=== PATIENT | male | born 1970 | race Caucasian/White ===

== ENCOUNTER 2019-12-22 14:36 | Outpatient (NON) | payer OTHER, SELFPAY ==
[2019-12-22 15:43] LABS: Red Blood Count 3.39 M/mm3 (4.70-6.10); White Blood Count 5.4 K/mm3 (4.8-10.8)
[2019-12-22 15:44] LABS: Hematocrit 33.3 % (40.0-54.0); Hemoglobin 10.7 g/dL (14.0-18.0); Mean Corpuscular HGB Conc 32.1 g/dL (32.0-36.0); Mean Corpuscular Hemoglobin 31.6 pg (27.0-31.0); Mean Corpuscular Volume 98.2 fL (78.0-102.0); Mean Platelet Volume 10.5 fl (8.7-11.0); Red Cell Distribution Width 14.4 % (11.6-14.4)
[2019-12-22 15:45] LABS: Eosinophils Absolute Auto 0.07 K/mm3 (0.02-0.50); Eosinophils Percent Auto 1.3 % (1.0-6.0); Immature Granulocyte Absolute 0.02 K/mm3 (0.00-0.00); Immature Granulocyte Percent A 0.4 % (0.0-0.0); Lymphocytes Absolute Auto 0.12 K/mm3 (1.10-4.50); Lymphocytes Percent Auto 2.2 % (18.0-42.0); Monocytes Absolute Auto 0.73 K/mm3 (0.10-0.90); Monocytes Percent Auto 13.6 % (2.0-11.0); Neutrophils Absolute Auto 4.4 K/mm3 (1.7-7.2); Neutrophils Percent Auto 82.5 % (50.0-70.0); Platelet Count Result 212 K/mm3 (150-420)
[2019-12-22 16:09] LABS: Albumin Level 2.9 g/dL (3.4-5.0); Anion Gap 10.5 mmol/L (7-16); Blood Urea Nitrogen 18 mg/dL (7-18); Calcium 8.4 mg/dL (8.5-10.1); Carbon Dioxide 28 mmol/L (21-32); Chloride 108 mmol/L (98-108); Estimated Glomerular Filt Rate 48; Glucose 79 mg/dL (70-99); Osmolality Calculated 296 mOsm/kg (285-295); Phosphorus 1.7 mg/dL (2.6-4.7); Potassium 3.5 mmol/L (3.5-5.1); Sodium 143 mmol/L (136-145)
[2019-12-24 20:29] LABS: Tacrolimus Prograf 9.4 mcg/L
== END 2019-12-22 14:37 ==
DX: Z94.0 Kidney transplant status (principal)
CPT/HCPCS: 36415; 80069; 80197; 83735; 85025

== ENCOUNTER 2020-01-02 13:06 | Outpatient (NON) | payer OTHER, SELFPAY ==
[2020-01-02 13:36] LABS: Basophils Absolute Auto 0.04 K/mm3 (0.00-0.10); Basophils Percent Auto 0.5 % (0.0-1.0); Eosinophils Absolute Auto 0.25 K/mm3 (0.02-0.50); Eosinophils Percent Auto 3.2 % (1.0-6.0); Hemoglobin 10.9 g/dL (14.0-18.0); Immature Granulocyte Absolute 0.04 K/mm3 (0.00-0.00); Immature Granulocyte Percent A 0.5 % (0.0-0.0); Lymphocytes Absolute Auto 0.43 K/mm3 (1.10-4.50); Lymphocytes Percent Auto 5.5 % (18.0-42.0); Mean Corpuscular HGB Conc 32.1 g/dL (32.0-36.0); Mean Corpuscular Hemoglobin 31.9 pg (27.0-31.0); Mean Corpuscular Volume 99.4 fL (78.0-102.0); Mean Platelet Volume 9.7 fl (8.7-11.0); Monocytes Absolute Auto 0.31 K/mm3 (0.10-0.90); Neutrophils Absolute Auto 6.8 K/mm3 (1.7-7.2); Neutrophils Percent Auto 86.3 % (50.0-70.0); Platelet Count Result 330 K/mm3 (150-420); Red Blood Count 3.42 M/mm3 (4.70-6.10); Red Cell Distribution Width 14.5 % (11.6-14.4); White Blood Count 7.8 K/mm3 (4.8-10.8)
[2020-01-02 13:54] LABS: Alanine Aminotransferase 45 U/L (16-63); Albumin Level 3.8 g/dL (3.4-5.0); Alkaline Phosphatase 71 U/L (46-116); Anion Gap 13.3 mmol/L (7-16); Aspartate Amino Transferase 22 U/L (15-37); Bilirubin,Total 0.6 mg/dL (0.00-1.00); Blood Urea Nitrogen 22 mg/dL (7-18); Calcium 9.1 mg/dL (8.5-10.1); Carbon Dioxide 27 mmol/L (21-32); Chloride 102 mmol/L (98-108); Estimated Glomerular Filt Rate 51; Glucose 76 mg/dL (70-99); Osmolality Calculated 286 mOsm/kg (285-295); Phosphorus 2.7 mg/dL (2.6-4.7); Potassium 5.3 mmol/L (3.5-5.1); Sodium 137 mmol/L (136-145); Total Protein 6.6 g/dL (6.4-8.2)
[2020-01-05 08:17] LABS: Tacrolimus Prograf 9.2 mcg/L
== END 2020-01-02 13:07 ==
PROVIDERS: Visit Provider Surgery
DX: Z94.0 Kidney transplant status (principal); Z79.899 Other long term (current) drug therapy
CPT/HCPCS: 36415; 80053; 80197; 84100; 85025

== ENCOUNTER 2020-01-09 15:05 | Outpatient (NON) | payer OTHER, SELFPAY ==
[2020-01-09 15:30] LABS: Hemoglobin 10.5 g/dL (14.0-18.0); Mean Corpuscular HGB Conc 32.8 g/dL (32.0-36.0); Mean Corpuscular Hemoglobin 32.2 pg (27.0-31.0); Mean Corpuscular Volume 98.2 fL (78.0-102.0); Mean Platelet Volume 9.2 fl (8.7-11.0); Platelet Count Result 381 K/mm3 (150-420); Red Blood Count 3.26 M/mm3 (4.70-6.10); Red Cell Distribution Width 14.6 % (11.6-14.4); White Blood Count 3.8 K/mm3 (4.8-10.8)
[2020-01-09 15:54] LABS: Alanine Aminotransferase 43 U/L (16-63); Albumin Level 3.7 g/dL (3.4-5.0); Alkaline Phosphatase 68 U/L (46-116); Anion Gap 14.8 mmol/L (7-16); Aspartate Amino Transferase 29 U/L (15-37); Bilirubin,Total 0.9 mg/dL (0.00-1.00); Blood Urea Nitrogen 22 mg/dL (7-18); Carbon Dioxide 25 mmol/L (21-32); Chloride 104 mmol/L (98-108); Estimated Glomerular Filt Rate 51; Glucose 95 mg/dL (70-99); Osmolality Calculated 289 mOsm/kg (285-295); Phosphorus 2.7 mg/dL (2.6-4.7); Potassium 5.8 mmol/L (3.5-5.1); Sodium 138 mmol/L (136-145); Total Protein 6.3 g/dL (6.4-8.2)
[2020-01-09 16:04] LABS: Creatinine Urine 210.53 mg/dL (40-278); Total Protein Urine Random 28.2 mg/dL (0.0-11.9)
[2020-01-09 16:10] LABS: Band Neutrophils Percent 0 % (0-6); Basophils Percent Manual 0 % (0-1); Eosinophils Percent Manual 0 % (1-6); Lymphocytes Absolute Manual 0.38 K/mm3 (1.1-4.5); Lymphocytes Percent Manual 10 % (18-44); Monocytes Absolute Manual 0.15 K/mm3 (0.1-0.90); Monocytes Percent Manual 4 % (3-9); Neutrophils Absolute Manual 3.26 K/mm3 (1.3-6.7); Neutrophils Percent Manual 86 % (46-73); Platelet Estimate Adequate (Adequate); Total Cells Counted 100
[2020-01-11 20:29] LABS: Tacrolimus Prograf 17.5 mcg/L
== END 2020-01-09 15:06 ==
PROVIDERS: Visit Provider Surgery
DX: Z48.22 Encounter for aftercare following kidney transplant (principal); I12.9 Hypertensive chronic kidney disease with stage 1 through stage 4 chronic kidney disease, or unspecified chronic kidney disease; D63.1 Anemia in chronic kidney disease
CPT/HCPCS: 36415; 80053; 80069; 80197; 82570; 84100; 84156; 85025

== ENCOUNTER 2020-01-23 14:18 | Outpatient (NON) | payer OTHER, SELFPAY ==
[2020-01-23 14:40] LABS: Basophils Absolute Auto 0.02 K/mm3 (0.00-0.10); Basophils Percent Auto 0.5 % (0.0-1.0); Eosinophils Absolute Auto 0.08 K/mm3 (0.02-0.50); Eosinophils Percent Auto 1.9 % (1.0-6.0); Hematocrit 28.2 % (40.0-54.0); Hemoglobin 9.3 g/dL (14.0-18.0); Immature Granulocyte Absolute 0.05 K/mm3 (0.00-0.00); Immature Granulocyte Percent A 1.2 % (0.0-0.0); Lymphocytes Absolute Auto 0.41 K/mm3 (1.10-4.50); Lymphocytes Percent Auto 9.6 % (18.0-42.0); Mean Corpuscular Hemoglobin 33.1 pg (27.0-31.0); Mean Corpuscular Volume 100.4 fL (78.0-102.0); Mean Platelet Volume 9.6 fl (8.7-11.0); Monocytes Absolute Auto 0.22 K/mm3 (0.10-0.90); Monocytes Percent Auto 5.2 % (2.0-11.0); Neutrophils Absolute Auto 3.5 K/mm3 (1.7-7.2); Neutrophils Percent Auto 81.6 % (50.0-70.0); Platelet Count Result 399 K/mm3 (150-420); Red Blood Count 2.81 M/mm3 (4.70-6.10); Red Cell Distribution Width 15.9 % (11.6-14.4); White Blood Count 4.3 K/mm3 (4.8-10.8)
[2020-01-23 14:50] LABS: Total Protein Urine Random 38.8 mg/dL (0.0-11.9)
[2020-01-23 14:51] LABS: Albumin Level 3.8 g/dL (3.4-5.0); Anion Gap 13.7 mmol/L (7-16); Blood Urea Nitrogen 24 mg/dL (7-18); Calcium 8.9 mg/dL (8.5-10.1); Carbon Dioxide 27 mmol/L (21-32); Chloride 104 mmol/L (98-108); Estimated Glomerular Filt Rate 52; Glucose 97 mg/dL (70-99); Osmolality Calculated 294 mOsm/kg (285-295); Potassium 4.7 mmol/L (3.5-5.1); Sodium 140 mmol/L (136-145)
[2020-01-23 16:26] LABS: Alanine Aminotransferase 24 U/L (16-63); Alkaline Phosphatase 65 U/L (46-116); Aspartate Amino Transferase 21 U/L (15-37); Bilirubin Direct 0.1 mg/dL (0-0.2); Bilirubin,Total 0.4 mg/dL (0.00-1.00); Total Protein 6.3 g/dL (6.4-8.2)
[2020-01-25 19:42] LABS: Tacrolimus Prograf 5.5 mcg/L
== END 2020-01-23 14:19 ==
PROVIDERS: Visit Provider Surgery
DX: Z94.0 Kidney transplant status (principal)
CPT/HCPCS: 36415; 80069; 80076; 80197; 82570; 84156; 85025

== ENCOUNTER 2020-01-30 10:03 | Outpatient (NON) | payer OTHER, SELFPAY ==
[2020-01-30 10:32] LABS: Hematocrit 27.5 % (40.0-54.0); Hemoglobin 9.3 g/dL (14.0-18.0); Mean Corpuscular HGB Conc 33.8 g/dL (32.0-36.0); Mean Corpuscular Hemoglobin 33.7 pg (27.0-31.0); Mean Corpuscular Volume 99.6 fL (78.0-102.0); Mean Platelet Volume 9.4 fl (8.7-11.0); Platelet Count Result 376 K/mm3 (150-420); Red Blood Count 2.76 M/mm3 (4.70-6.10); Red Cell Distribution Width 17.6 % (11.6-14.4); White Blood Count 3.4 K/mm3 (4.8-10.8)
[2020-01-30 10:45] LABS: Creatinine Urine 170.53 mg/dL (40-278); Total Protein Urine Random 25.8 mg/dL (0.0-11.9)
[2020-01-30 10:49] LABS: Alanine Aminotransferase 23 U/L (16-63); Albumin Level 3.6 g/dL (3.4-5.0); Alkaline Phosphatase 56 U/L (46-116); Aspartate Amino Transferase 14 U/L (15-37); Bilirubin,Total 0.7 mg/dL (0.00-1.00); Blood Urea Nitrogen 18 mg/dL (7-18); Carbon Dioxide 26 mmol/L (21-32); Chloride 104 mmol/L (98-108); Estimated Glomerular Filt Rate 56; Glucose 109 mg/dL (70-99); Osmolality Calculated 290 mOsm/kg (285-295); Phosphorus 2.8 mg/dL (2.6-4.7); Sodium 139 mmol/L (136-145); Total Protein 6.5 g/dL (6.4-8.2)
[2020-01-30 11:14] LABS: Band Neutrophils Percent 0 % (0-6); Basophils Percent Manual 0 % (0-1); Eosinophils Absolute Manual 0.06 K/mm3 (0.02-0.5); Eosinophils Percent Manual 2 % (1-6); Lymphocytes Percent Manual 12 % (18-44); Monocytes Absolute Manual 0.23 K/mm3 (0.1-0.90); Monocytes Percent Manual 7 % (3-9); Neutrophils Absolute Manual 2.68 K/mm3 (1.3-6.7); Neutrophils Percent Manual 79 % (46-73); Nucleated Red Blood Cells 1 %; Total Cells Counted 100
[2020-01-30 11:25] LABS: Platelet Estimate Adequate (Adequate)
[2020-02-02 16:37] LABS: Tacrolimus Prograf 5.4 mcg/L
== END 2020-01-30 10:04 ==
LOC: CHSLAB 10:05
PROVIDERS: Visit Provider Surgery
DX: Z48.22 Encounter for aftercare following kidney transplant (principal)
CPT/HCPCS: 36415; 80053; 80197; 82570; 84100; 84156; 85025

== ENCOUNTER 2020-02-06 14:32 | Outpatient (NON) | payer OTHER, SELFPAY ==
[2020-02-06 14:53] LABS: Hematocrit 28.5 % (40.0-54.0); Hemoglobin 9.4 g/dL (14.0-18.0); Mean Corpuscular Hemoglobin 34.3 pg (27.0-31.0); Mean Platelet Volume 9.5 fl (8.7-11.0); Platelet Count Result 339 K/mm3 (150-420); Red Blood Count 2.74 M/mm3 (4.70-6.10); Red Cell Distribution Width 19.2 % (11.6-14.4); White Blood Count 2.8 K/mm3 (4.8-10.8)
[2020-02-06 14:59] LABS: Creatinine Urine 104.87 mg/dL (40-278); Total Protein Urine Random 18.5 mg/dL (0.0-11.9)
[2020-02-06 15:20] LABS: Alanine Aminotransferase 30 U/L (16-63); Albumin Level 3.8 g/dL (3.4-5.0); Alkaline Phosphatase 56 U/L (46-116); Anion Gap 14.2 mmol/L (7-16); Aspartate Amino Transferase 16 U/L (15-37); Bilirubin Direct 0.2 mg/dL (0-0.2); Bilirubin,Total 0.7 mg/dL (0.00-1.00); Blood Urea Nitrogen 18 mg/dL (7-18); Calcium 8.8 mg/dL (8.5-10.1); Carbon Dioxide 27 mmol/L (21-32); Chloride 105 mmol/L (98-108); Cholesterol 141 mg/dL (0-200); Estimated Glomerular Filt Rate 55; Glucose 93 mg/dL (70-99); HDL Direct 62 mg/dL (40-60); LDL Cholesterol Calculated 64 mg/dL (<130); Osmolality Calculated 295 mOsm/kg (285-295); Phosphorus 2.9 mg/dL (2.6-4.7); Potassium 4.2 mmol/L (3.5-5.1); Sodium 142 mmol/L (136-145); Total Protein 6.3 g/dL (6.4-8.2); Triglycerides 74 mg/dL (0-150)
[2020-02-06 15:48] LABS: Band Neutrophils Percent 0 % (0-6); Basophils Percent Manual 0 % (0-1); Eosinophils Absolute Manual 0.02 K/mm3 (0.02-0.5); Eosinophils Percent Manual 1 % (1-6); Lymphocytes Absolute Manual 0.39 K/mm3 (1.1-4.5); Lymphocytes Percent Manual 14 % (18-44); Monocytes Absolute Manual 0.22 K/mm3 (0.1-0.90); Monocytes Percent Manual 8 % (3-9); Neutrophils Absolute Manual 2.15 K/mm3 (1.3-6.7); Neutrophils Percent Manual 77 % (46-73); Platelet Estimate Adequate (Adequate); Total Cells Counted 100
[2020-02-09 11:54] LABS: Tacrolimus Prograf 4.2 mcg/L
== END 2020-02-06 14:33 ==
LOC: CHSLAB 14:33
PROVIDERS: Visit Provider Surgery
DX: Z79.899 Other long term (current) drug therapy (principal); Z94.4 Liver transplant status
CPT/HCPCS: 36415; 80053; 80061; 80197; 82248; 82570; 84100; 84156; 85025